=== PATIENT | female | born 2000 | race African-American/Black ===

== ENCOUNTER 2024-11-23 00:51 | Emergency (ER) | payer SELFPAY ==
[~2024-11-23] VITALS: Ht 162.6 cm; Wt 41.0 kg
[2024-11-23 00:54] VITALS: BP 118/75; PULSE 73; RESP 14; TEMP 36.6; O2SAT 98
[2024-11-23] MEDS: ONDANSETRON 4MG ODT PO ONE (02:30)
== END 2024-11-23 03:51 | disposition home or self-care (01) ==
LOC: ER 00:51
DX: R11.2 Nausea with vomiting, unspecified (principal)
CPT/HCPCS: 99283; Q0162